=== PATIENT | male | born 2000 | race Caucasian/White ===

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

== ENCOUNTER → 2020-09-03 | Outpatient (CLI) | payer OTHER ==
--- NOTE | 2020-09-03 11:09 | US ---
EXAMINATION TYPE: US liver DATE OF EXAM: 09/03/2020 COMPARISON: CT 2019, US 2018 CLINICAL HISTORY: K75.81 Nonalcoholic steatohepatitis (DREW). History of fatty liver EXAM MEASUREMENTS: Liver Length: 16.2 cm Gallbladder Wall: 0.1 cm CBD: 0.3 cm Right Kidney: 11.5 x 5.5 x 5.9 cm Difficult and limited study due morbidly obese patient Pancreas: obscured by overlying midline bowel gas Liver: attenuating, increased echogenicity, visualized portions appear heterogeneous Gallbladder: appears wnl Evidence for sonographic Jeffrey's sign: no CBD: visualized portions wnl, limited by overlying bowel gas Right Kidney: wnl IMPRESSION: 1. Hepatic steatosis.
== END | disposition home or self-care (01) ==
LOC: RADUSWWP 10:17
PROVIDERS: ATTEND Family Medicine
DX: K75.81 Nonalcoholic steatohepatitis (NASH) (principal)
CPT/HCPCS: 76705

== ENCOUNTER 2021-05-17 10:38 | Emergency (ER) | payer OTHER ==
[2021-05-17 10:53] VITALS: TEMP 98.3
[2021-05-17] MEDS ORDERED: LORazepam 2 MG/ML INJ IV STA ×2 (11:10→11:11)
--- NOTE | 2021-05-17 11:27 | ED ---
General Adult HPI - General Chief complaint: Neuro Symptoms/Deficit Stated complaint: no feeling in both hands Time Seen by Provider: 05/17/21 11:03 Source: patient, family, RN notes reviewed, old records reviewed Mode of arrival: wheelchair Limitations: no limitations - History of Present Illness Initial comments: This is a 20-year-old male who presents emergency Department complaining that he has bilateral hand tingling after he was cutting some peppers at work. Patient states she's done this before. Patient states after that he started noticing that he was having some stuttering speech but no slurred speech and he was able to express himself accurately except occasionally stutter. Patient also complains of a moderate headache. Patient denies any numbness or weakness. Patient isn't blurred vision. There is facial droop. Patient denies any chest pain difficulty breathing shortness of breath per patient denies any rashes or redness. Patient denies any hives. Patient denies abdominal pain patient denies nausea vomiting diarrhea. Patient denies similar symptoms in the past. - Related Data Allergies Allergy/AdvReac Type Severity Reaction Status Date / Time Egg Derived Allergy Anaphylaxis Verified 05/17/21 10:48 Review of Systems ROS Statement: Those systems with pertinent positive or pertinent negative responses have been documented in the HPI. ROS Other: All systems not noted in ROS Statement are negative. Past Medical History Past Medical History: Hyperlipidemia Additional Past Medical History / Comment(s): Fatty liver History of Any Multi-Drug Resistant Organisms: None Reported Past Surgical History: No Surgical Hx Reported Past Psychological History: No Psychological Hx Reported Smoking Status: Never smoker Past Alcohol Use History: None Reported Past Drug Use History: None Reported General Exam - General Exam Comments Initial Comments: GENERAL: Patient is well-developed and well-nourished. Patient is nontoxic and well- hydrated and is in no acute distress. ENT: Neck is soft and supple. No significant lymphadenopathy is noted. Oropharynx is clear. Moist mucous membranes. Neck has full range of motion without eliciting any pain. EYES: The sclera were anicteric and conjunctiva were pink and moist. Extraocular movements were intact and pupils were equal round and reactive to light. Eyelids were unremarkable. PULMONARY: Unlabored respirations. Good breath sounds bilaterally. No audible rales rho nchi or wheezing was noted. CARDIOVASCULAR: There is a regular rate and rhythm without any murmurs gallops or rubs. ABDOMEN: Soft and nontender with normal bowel sounds. No palpable organomegaly was noted. There is no palpable pulsatile mass. SKIN: Patient's palms clear or any erythema. NEUROLOGIC: Patient is alert and oriented x3. Cranial nerves II through XII are grossly intact. Motor and sensory are also intact. When testing his hand strength was normal bilaterally and there was no decreased sensation at all Patient's speech is very clear but he occasionally stutters but when he gets distracted he is able to talk fine. MUSCULOSKELETAL: Normal extremities with adequate strength and full range of motion. LYMPHATICS: No significant lymphadenopathy is noted PSYCHIATRIC: Normal psychiatric evaluation. Limitations: no limitations Course Vital Signs 05/17/21 10:48 Temperature 98.3 F Pulse Rate 88 Respiratory 16 Rate Blood Pressure 127/80 O2 Sat by Pulse 96 Oximetry Medical Decision Making - Medical Decision Making Patient got Ativan and his symptoms got Ativan his stuttered speech completely resolved. Patient states she felt completely better after the Ativan back to his baseline. She never had any ALLERGY-like symptoms. - Lab Data Result diagrams: 05/17/21 11:32 05/17/21 11:32 Lab Results 05/17/21 05/17/21 Range/Units 11:32 11:32 WBC 8.4 (4.0-11.0) k/uL RBC 5.04 (4.30-5.90) m/uL Hgb 15.3 (13.0-17.5) gm/dL Hct 45.4 (39.0-53.0) % MCV 90.1 (80.0-100.0) fL MCH 30.4 (25.0-35.0) pg MCHC 33.8 (31.0-37.0) g/dL RDW 13.8 (11.5-15.5) % Plt Count 247 (150-450) k/uL MPV 8.7 Neutrophils % 66 % Lymphocytes % 25 % Monocytes % 6 % Eosinophils % 1 % Basophils % 1 % Neutrophils # 5.5 (1.3-7.7) k/uL Lymphocytes # 2.1 (1.0-4.8) k/uL Monocytes # 0.5 (0-1.0) k/uL Eosinophils # 0.1 (0-0.7) k/uL Basophils # 0.1 (0-0.2) k/uL Sodium 141 (137-145) mmol/L Potassium 4.7 (3.5-5.1) mmol/L Chloride 106 (98-107) mmol/L Carbon Dioxide 25 (22-30) mmol/L Anion Gap 10 mmol/L BUN 18 (9-20) mg/dL Creatinine 0.80 (0.66-1.25) mg/dL Est GFR (CKD-EPI)AfAm >90 (>60 ml/min/1.73 sqM) Est GFR (CKD-EPI)NonAf >90 (>60 ml/min/1.73 sqM) Glucose 100 H (74-99) mg/dL Calcium 9.7 (8.4-10.2) mg/dL Total Bilirubin 1.0 (0.2-1.3) mg/dL AST 32 (17-59) U/L ALT 70 H (4-49) U/L Alkaline Phosphatase 59 (38-126) U/L Total Protein 7.7 (6.3-8.2) g/dL Albumin 4.1 (3.5-5.0) g/dL Disposition Clinical Impression: Carpal tunnel syndrome, bilateral, Anxiety Disposition: HOME SELF-CARE Condition: Good Instructions (If sedation given, give patient instructions): Carpal Tunnel Surgery (DC), Anxiety (ED) Is patient prescribed a controlled substance at d/c from ED?: No Referrals: Ladarius Dow III, MD [Primary Care Provider] - 1-2 days Time of Disposition: 12:12
--- NOTE | 2021-05-17 11:34 | CT ---
EXAMINATION TYPE: CT brain wo con DATE OF EXAM: 05/17/2021 COMPARISON: None HISTORY: headache, numbness in hands and feet CT DLP: 1099.4 mGycm. Automated Exposure Control for Dose Reduction was Utilized. TECHNIQUE: CT scan of the head is performed without contrast. FINDINGS: There is no acute intracranial hemorrhage, mass effect, or midline shift identified. The ventricles and sulci are within normal limits in size. The globes are intact and the visualized sin uses are remarkable for some mild inflammatory change in ethmoid air cells. IMPRESSION: No acute intracranial hemorrhage, mass effect, or midline shift is seen. Mild sinus dise ase. Consider brain MRI as indicated.
[2021-05-17 11:39] LABS: Basophils # (A) 0.1 k/uL (0-0.2); Basophils % (A) 1 %; Eosinophils # (A) 0.1 k/uL (0-0.7); Eosinophils % (A) 1 %; HCT 45.4 % (39.0-53.0); HGB 15.3 gm/dL (13.0-17.5); Lymphocytes # (A) 2.1 k/uL (1.0-4.8); Lymphocytes % (A) 25 %; MCH 30.4 pg (25.0-35.0); MCHC 33.8 g/dL (31.0-37.0); MCV 90.1 fL (80.0-100.0); Mean Platelet Volume 8.7; Monocytes # (A) 0.5 k/uL (0-1.0); Monocytes % (A) 6 %; Neutrophils # (A) 5.5 k/uL (1.3-7.7); Neutrophils % (A) 66 %; Platelet Count 247 k/uL (150-450); RBC 5.04 m/uL (4.30-5.90); RDW 13.8 % (11.5-15.5); WBC 8.4 k/uL (4.0-11.0)
[2021-05-17 11:52] LABS: ALT 70 U/L (4-49); AST 32 U/L (17-59); African American GFR (CKD) >90 (>60 ml/min/1.73 sqM); Albumin 4.1 g/dL (3.5-5.0); Alkaline Phosphatase 59 U/L (38-126); Anion Gap 10 mmol/L; Blood Urea Nitrogen 18 mg/dL (9-20); Calcium 9.7 mg/dL (8.4-10.2); Carbon Dioxide 25 mmol/L (22-30); Chloride 106 mmol/L (98-107); Glucose 100 mg/dL (74-99); Non-African American GFR(CKD) >90 (>60 ml/min/1.73 sqM); Potassium 4.7 mmol/L (3.5-5.1); Sodium 141 mmol/L (137-145); Total Protein 7.7 g/dL (6.3-8.2)
[2021-05-17 12:19] VITALS: BP 128/76; PULSE 90; RESP 20
== END 2021-05-17 12:19 | disposition home or self-care (01) ==
LOC: EC 10:38
DX: G56.03 Carpal tunnel syndrome, bilateral upper limbs (principal); F41.9 Anxiety disorder, unspecified; E78.5 Hyperlipidemia, unspecified
CPT/HCPCS: 99284; 96374; 36415; 80053; 85025; 70450; J2060